=== PATIENT | male | born 1960 ===

== ENCOUNTER 2018-06-29 17:10 | Emergency (ER) | payer OTHER ==
[2018-06-29] MEDS ORDERED: TORADOL IV ONE (17:33)
[2018-06-29] MEDS ORDERED: ZOFRAN IV ONE (17:33)
[2018-06-29] MEDS ORDERED: MORPHINE IV ONE (17:33)
[2018-06-29] MEDS ORDERED: NACL 0.9% 1000 ML 1,000 ML IV ONE (17:33)
--- NOTE | 2018-06-29 17:44 | Emergency Department Report ---
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 Henrry Burden is a 57-year-old male with history of hypertension presents with 3 days of frontal headache, diffuse abdominal pain nausea and vomiting. Multiple sick contacts at home. and son with similar symptoms. Does not see a primary care physician on a regular basis. Does not take any home medications. Denies tobacco or alcohol use. 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 MD Complaint: abdominal pain -: Gradual, days(s) (3) Location: diffuse Radiation: none Severity: mild, moderate Quality: cramping Consistency: constant Worsens With: eating Context: sick contacts Associated Symptoms: nausea, vomiting - Related Data Previous Rx's Medication Instructions Recorded Last Taken Type Promethazine [Phenergan] 25 mg PO Q6HR PRN #10 tab 06/29/18 Unknown Rx levoFLOXacin [Levaquin TAB] 750 mg PO ONCE #4 tablet 06/29/18 Unknown Rx Allergies Allergy/AdvReac Type Severity Reaction Status Date / Time No Known Allergies Allergy Unverified 06/29/18 17:52 ED Review of Systems ROS: Stated complaint: ABD PAIN Other details as noted in HPI Comment: All other systems reviewed and negative Constitutional: malaise Gastrointestinal: abdominal pain, nausea, vomiting Neurological: headache ED Past Medical Hx - Past Medical History Previous Medical History?: Yes Hx Hypertension: Yes - Surgical History Past Surgical History?: No - Family History Family history: hypertension - Social History Smoking Status: Never Smoker Substance Use Type: None Other Social History: 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 - Medications Home Medications: Home Medications Medication Instructions Recorded Confirmed Last Taken Type Promethazine [Phenergan] 25 mg PO Q6HR PRN #10 tab 06/29/18 Unknown Rx levoFLOXacin [Levaquin TAB] 750 mg PO ONCE #4 tablet 06/29/18 Unknown Rx ED Physical Exam - General General appearance: alert, in no apparent distress - Head Head exam: Present: atraumatic, normocephalic - Eye Eye exam: Present: normal appearance - ENT ENT exam: Present: mucous membranes moist - Neck Neck exam: Present: normal inspection, full ROM - Respiratory Respiratory exam: Present: normal lung sounds bilaterally. Absent: respiratory distress, wheezes, rales, rhonchi - Cardiovascular Cardiovascular Exam: Present: regular rate, normal rhythm, normal heart sounds. Absent: systolic murmur, diastolic murmur, rubs, gallop - GI/Abdominal GI/Abdominal exam: Present: soft, normal bowel sounds. Absent: distended, tenderness, guarding, rebound - Rectal Rectal exam: Present: deferred - Extremities Exam Extremities exam: Present: normal inspection - Neurological Exam Neurological exam: Present: alert, oriented X3 - Psychiatric Psychiatric exam: Present: normal affect, normal mood - Skin Skin exam: Present: warm, dry, intact, normal color. Absent: rash ED Course Vital Signs 06/29/18 06/29/18 06/29/18 17:52 18:06 19:15 Temperature 100.9 F H 98.3 F Pulse Rate 102 H 83 Respiratory 19 18 18 Rate Blood Pressure Blood Pressure 119/76 125/67 [Left] O2 Sat by Pulse 93 93 95 Oximetry 06/29/18 21:01 Temperature Pulse Rate 83 Respiratory 16 Rate Blood Pressure 105/57 Blood Pressure [Left] O2 Sat by Pulse 93 Oximetry ED Medical Decision Making - Lab Data Result diagrams: 06/29/18 17:44 06/29/18 17:44 - Medical Decision Making Mr. Elizalde is a 57-year-old male presents with low-grade temperature 100.9, abdominal pain vomiting and mild headache. White count elevated 20,000. Will obtain CT scan to rule out acute inflammatory process such as appendicitis or cholecystitis or diverticulitis My colleague will make the final appropriate disposition. Critical care attestation.: If time is entered above; I have spent that time in minutes in the direct care of this critically ill patient, excluding procedure time. ED Disposition Clinical Impression: Abdominal pain, Pneumonia Disposition: -01 TO HOME OR SELFCARE Is pt being admited?: No Does the pt Need Aspirin: No Condition: Stable Instructions: Acute Abdominal Pain (ED), Bacterial Pneumonia (ED) Prescriptions: levoFLOXacin [Levaquin TAB] 750 mg PO ONCE #4 tablet Promethazine [Phenergan] 25 mg PO Q6HR PRN #10 tab PRN Reason: Nausea Referrals: [facility] [Outside] - 3-5 Days Forms: Work/School Release Form(ED)
[2018-06-29 18:02] LABS: Hematocrit 40.7 % (35.5-45.6); Hemoglobin 13.9 gm/dl (11.8-15.2); Mean Corpuscular HGB Conc 34 % (32-34); Mean Corpuscular Volume 89 fl (84-94); Platelet Count 196 K/mm3 (140-440); Red Blood Count 4.56 M/mm3 (3.65-5.03); Red Cell Distribution Width 13.5 % (13.2-15.2)
[2018-06-29 18:40] LABS: Albumin 3.5 g/dL (3.9-5); Bilirubin,Direct 0.4 mg/dL (0-0.2); Calcium 9.1 mg/dL (8.4-10.2)
--- NOTE | 2018-06-29 20:44 | Cat Scan Report ---
PROCEDURE: CT ABDOMEN PELVIS W CON TECHNIQUE: Computerized axial tomography of the abdomen and pelvis was performed after the IV inject ion of iodinated nonionic contrast. CT DOSE LENGTH PRODUCT: 2114.3 mGycm HISTORY: abdominal pain COMPARISONS: None . FINDINGS: Visualized lower thorax: There is left lower lobe airspace consolidation, compatible with pneumonia. Liver: 6 mm low-attenuation lesion in the right hepatic lobe is likely related to a cyst. Spleen: Normal size and attenuation. Gallbladder and biliary system: Normal. Pancreas: Normal. Adrenals: Normal. Kidneys: Normal. GI tract: Normal . Lymph nodes and mesentery: There is sigmoid diverticulosis. No appendiceal inflammation. No bowel obs truction or inflammation. Vasculature: Normal. Bladder: Normal. Reproductive organs: Normal. Peritoneum: No free fluid. Musculoskeletal structures: Degenerative disc changes at L5-S1. Other: None . IMPRESSION: There is left lower lobe airspace consolidation, compatible with pneumonia. Sigmoid diverticulosis, with no evidence of bowel obstruction or acute inflammation . This document is electronically signed by Chioma Cline MD., Jun 29 2018 08:42:37 PM ET
[2018-06-29 21:25] LABS: Band Neutrophils # (Manual) 1.4 K/mm3; Basophils % (Manual) 0 % (0.0-1.8); Eosinophils % (Manual) 0 % (0.0-4.3); Total Cells Counted 100
[2018-06-29 21:26] LABS: Large Platelets 1+; Platelet Estimate Consistent w Auto; RBC Morphology Normal
[2018-06-29] MEDS ORDERED: LEVAQUIN PO ONE (21:45)
[2018-06-29 21:52] VITALS: BP 105/57
== END 2018-06-29 22:00 | disposition home or self-care (01) ==
LOC: ED 17:10
DX: J18.9 Pneumonia, unspecified organism (principal); R10.9 Unspecified abdominal pain; I10 Essential (primary) hypertension
CPT/HCPCS: 36415; 74177; 80048; 80076; 83690; 85007; 85025; 96361; 96374; 96375; 99285; J1885; J2270; J2405; J7030; Q9967